=== PATIENT | male | born 1935 | race Caucasian/White ===

== ENCOUNTER 2019-09-19 21:37 | Emergency (ER) | payer MEDICARE, OTHER, SELFPAY ==
[2019-09-19 21:37] VITALS: BP 140/52; PULSE 75; RESP 18; TEMP 36.6; O2SAT 93; BMI 28.0
--- NOTE | 2019-09-19 22:32 | ED.DCSUM_ITS ---
History of Present Illness Chief Complaint: Confusion Informant: SNF Narrative: If reports that the patient has increased confusion. Patient unable to give a history due to his dementia. He has chronic baseline dementia and is bedbound. He has been in the [facility] for approximately 1 month as his could no longer care for him. He pulled his IV out tonight. He is supposed to get IV antibiotics for a pneumonia. He denies any complaints. He denies any shortness of breath or fevers or chills. Is not reported he has had any fevers or chills. Current severity is unknown. Past Medical History - Allergies and Home Meds Allergies/Adverse Reactions: Allergies albuterol [From Proventil HFA] Adverse Reaction (Verified 09/19/19 21:43) PT UNABLE TO RESPOND-NEEDS F/U clonidine Adverse Reaction (Verified 09/19/19 21:43) PT UNABLE TO RESPOND-NEEDS F/U oxycodone Adverse Reaction (Verified 09/19/19 21:43) PT UNABLE TO RESPOND-NEEDS F/U sulfamethoxazole [From Bactrim] Adverse Reaction (Verified 09/19/19 21:43) PT UNABLE TO RESPOND-NEEDS F/U trimethoprim [From Bactrim] Adverse Reaction (Verified 09/19/19 21:43) PT UNABLE TO RESPOND-NEEDS F/U Primary Care Physician: Juan Diego Vargas MD [Primary Care Provider] - Prior records reviewed: Yes Past Medical History: - - Dementia Surgical History: noncontributory [facility] Smoking Status: Unknown if ever smoked Alcohol: None Drugs: None Review of Systems ROS: Unable to Obtain - Secondary to dementia Physical Exam Vital Signs/Narrative: Vital Signs Temp Pulse Resp BP Pulse Ox 09/19/19 21:37 98 F 75 18 140/52 H 93 General: Well nourished, Well developed, No Acute Distress Head: Normocephalic, Atraumatic Eyes: Perrl, EOMI ENT: Moist mucous membranes, No rhinorrhea Neck: Supple, Nontender Cardiovascular: Regular rate, Regular rhythm, No murmurs Respiratory: No distress, CTA bilaterally, Chest nontender Abdomen: Soft, Nontender, Nondistended, Normal bowel sounds Back: Nontender, Normal Inspection Extremities: Nontender, No edema Skin: Normal color, No rash Neurological: Alert, Cranial nerves II-XII grossly intact, Normal Strength, Normal Sensation. Negative for: Oriented x3 Psychological: Normal affect, Normal Mood Diagnostic/Tx/Re-eval - Medical Decision Making Lab work CT brain and chest x-ray obtained. CT brain shows chronic atrophy with nothing acute. Chest x-ray shows mild interstitial pattern with no acute infiltrates or CHF. Lab work shows chronic renal insufficiency with elevated BUN and creatinine at 2.0. This is chronic for the patient comparing to previous lab work at the [facility]. Sodium is mildly elevated. This is unchanged from previous lab work done at the [facility] on yesterday. He did require 2 doses of Haldol to allow us to obtain a urine straight cath as well as lab work. Urinalysis shows no evidence of infection. There is no ketones in his urine to suggest dehydration. At this time I feel the patient likely just has dementia with confusion. He pulled out his PICC line and he was receiving IV antibiotics. It appears that they are going to switch him over to oral antibiotics to finish his course. Patient has a very mild leukocytosis likely secondary to his previous pneumonia. I do not feel he needs to be admitted. I feel he can follow-up as an outpatient at the [facility] ED Disposition - Plan for ED Patient: Disposition: Home or Assisted Living Diagnosis: Dementia with behavioral disturbance, Chronic renal insufficiency, Hypernatremia Instructions: ED CAREGIVER SUPPORT for DEMENTIA Referrals: Juan Diego Vargas MD [Primary Care Provider] -
[2019-09-19] MEDS: Haloperidol Lactate 5 MG/ML Vial 2 MG IM (23:21)
[2019-09-19 23:22] VITALS: O2SAT 87
--- NOTE | 2019-09-20 00:01 | RAD_ITS ---
STUDY: X-RAY CHEST REASON FOR EXAM: Male, 84 years old. CONFUSED AND COMBATIVE TECHNIQUE: Single AP portable view of the chest. COMPARISON: None. FINDINGS: Interstitial markings are mildly prominent especially in the left midlung zone. There is a subtle suggestion of calcification or linear calcification which could represent pleural plaquing. There is mild cardiac enlargement. Normal mediastinum and yue. Normal visualized pulmonary arteries. There is atherosclerotic calcification of the aortic arch with tortuosity. There are diffuse degenerative changes of the visualized thoracic spine. Normal visualized ribs, clavicles, and shoulders. There is no demonstrated abnormality of the visualized soft tissue structures of the upper abdomen. RAD/Chest 1 View (Portable) IMPRESSION: Nonspecific left greater than right interstitial markings. Possible minimal left side pleural plaquing. Consider underlying chronic interstitial lung disease or fibrosis. Cannot entirely exclude atypical infiltrates or mild edema. Electronically Signed: Amber Laws MD at 1:52 EDT Tel , Service support ,
--- NOTE | 2019-09-20 00:03 | ED.RN ---
attempted iv placement again, pt uncooperative. MD aware and medication order placed.
[2019-09-20] MEDS: Haloperidol Lactate 5 MG/ML Vial 2 MG IM (00:09)
[2019-09-20 01:00] VITALS: RESP 17
[2019-09-20 01:19] LABS: Bacteria 0 SEEN /hpf (None Seen); Mucous, Urine 0 SEEN /hpf (<or=2+); Red Blood Cells-Urine 0 SEEN /hpf (0-5); White Blood Cells 0 SEEN /hpf (0-5)
[2019-09-20 01:21] LABS: Color, Urine Yellow (Yellow); Glucose, Dipstick Normal (Normal); Ketone-Dipstick Negative (Negative); Leukocyte Esterase-Dipstick Negative /ul (Negative); Nitrite-Dipstick Negative (Negative); Occult Blood-Urine Negative /ul (Negative); Protein-Dipstick 15 mg/dl (Negative); Specific Gravity, Urine 1.025 (1.002-1.030); Urine Bilirubin Dipstick Negative (Negative); Urine Clarity Sl. Cloudy (Clear); Urine Urobilinogen Normal (Normal)
[2019-09-20 01:22] LABS: Absolute Lymphocyte Count 0.88 X10^3/uL (0.83-4.51); Absolute Neutrophil Count 8.4 X10^3/uL (2.0-7.7); Basophil# 0.04 X10^3/uL; Basophil% 0.4 % (0-1); Eosinophils% 3.5 % (0-5); Hematocrit 46.4 % (40-54); Lymphocyte # 0.88 X10^3/ul (4.0); Lymphocyte % 7.7 % (19-41); Mean Corp Hgb Conc 32.3 g/dL (32-36); Mean Corpuscular Hgb 32.1 pg (27.0-32.0); Mean Corpuscular Volume 99.1 fL (80-94); Mean Platelet Vol. 9.8 fl (6.2-12.0); Monocyte# 1.59 X10^3/uL; NRBC Flagged by Analyzer 0 % (0-5); POSITIVE DIFFERENTIAL YES; Platelet Count 211 K/mm3 (150-450); RBC Distribution Width CV 13.3 % (11.6-14.6); RBC Distribution Width SD 48.4 fl (35.1-43.9); Red Blood Count 4.68 M/mm3 (4.6-6.2); White Blood Count 11.4 K/mm3 (4.4-11.0)
[2019-09-20 01:25] LABS: Differential Indicated SCAN CRITERIA MET
[2019-09-20 01:38] LABS: Anion Gap 6 (5-15); BUN 48 mg/dL (7-18); BUN/Creat Ratio 23.4 RATIO (10-20); Calcium,Total 9.4 mg/dL (8.5-10.1); Chloride 113 mmol/L (98-107); Creatinine, Serum 2.05 mg/dL (0.70-1.30); EST Glomerular Filtration Rate 33 mL/min (>60); Est Glom Filt Rate - Afr Amer 40 mL/min (>60); Glucose 98 mg/dL (74-106); Potassium 4.4 mmol/L (3.5-5.1); Sodium Level 149 mmol/L (136-145)
[2019-09-20 01:42] LABS: Squamous Epithelial Cells - UA 0-5 SEEN /hpf (0-5)
[2019-09-20 01:45] LABS: Anisocytosis RARE; Macrocytosis RARE; Platelet Estimate ADEQUATE (ADEQ); Red Cell Morphology N CHROM NORMAL (NORM C&C)
[2019-09-20 02:20] VITALS: BP 147/89; PULSE 83; RESP 18; O2SAT 94
[2019-09-20 11:25] LABS: Pathologist Review Reviewed
--- NOTE | 2019-09-20 22:30 | CT_ITS ---
STUDY: CT BRAIN WITHOUT CONTRAST REASON FOR EXAM: Male, 84 years old. Confusion/combative, pt ON LEVAQUIN -- HX:DEMENTIA,HTN,PROSTATE Cancer, cad RADIATION DOSAGE (If Supplied By Facility): CTDIvol = ( 44.99 ) mGy, DLP = ( 796.11 ) mGycm TECHNIQUE: Transaxial CT imaging of the brain was performed without administration of intravenous contrast material. Individualized dose optimization techniques were used for this CT. COMPARISON: Due to technical issues the prior study is unavailable for comparison. FINDINGS: Normal soft tissue structures. Normal calvarium. There is moderate cerebral atrophy with widening of the extra-axial spaces and ventricular dilatation. There are areas of decreased attenuation within the white matter tracts of the supratentorial brain, consistent with microvascular disease changes. There is focal low attenuation within the left basal ganglia compatible with old lacunar infarct. Normal brainstem. There is moderate cerebellar atrophy. There is no intracranial hemorrhage. There are no findings of an acute ischemic infarction. Normal visualized paranasal sinuses. Is calcification of the cavernous carotid arteries. CT/Brain/Head without Contrast IMPRESSION: Atrophy. No evidence of acute hemorrhage infarct or edema. Electronically Signed: Amber Laws MD at 1:50 EDT Tel , Service support ,
== END 2019-09-20 02:25 | disposition home or self-care (01) ==
PROVIDERS: Emergency Provider Emergency Medicine; PCP Family Medicine
DX: F03.91 Unspecified dementia, unspecified severity, with behavioral disturbance (principal); F05 Delirium due to known physiological condition; I12.9 Hypertensive chronic kidney disease with stage 1 through stage 4 chronic kidney disease, or unspecified chronic kidney disease; N18.9 Chronic kidney disease, unspecified; I25.10 Atherosclerotic heart disease of native coronary artery without angina pectoris; E87.0 Hyperosmolality and hypernatremia; Z74.01 Bed confinement status; Z79.899 Other long term (current) drug therapy
CPT/HCPCS: 70450; 71045; 80048; 81001; 85025; 96372; 99285; P9612; A4216

== ENCOUNTER 2019-09-28 06:55 | Emergency (ER) | payer MEDICARE, OTHER, SELFPAY ==
[2019-09-28 06:58] VITALS: BP 106/55; PULSE 60; RESP 33; TEMP 36.6; O2SAT 99; BMI 28.0
--- NOTE | 2019-09-28 07:05 | CT_ITS ---
STUDY: CT BRAIN WITHOUT CONTRAST REASON FOR EXAM: Male, 84 years old. ALTERED MENTAL STATUS, LETHARGY, DECREASED LOC, DEMENTIA WITH BEHAVIORAL DISTURBANCE, HTN, PROSTATE CA, CAD-STENTS, STAGE 3 CKD RADIATION DOSAGE (If Supplied By Facility): CTDIvol = ( 44.99 ) mGy, DLP = ( 779.24 ) mGycm TECHNIQUE: Transaxial CT imaging of the brain was performed without administration of intravenous contrast material. Individualized dose optimization techniques were used for this CT. COMPARISON: Comparison is made with prior examination dated September 20, 2019. FINDINGS: Normal soft tissue structures. Normal calvarium. There is moderate cerebral atrophy with widening of the extra-axial spaces and ventricular dilatation. There are areas of decreased attenuation within the white matter tracts of the supratentorial brain, consistent with microvascular disease changes. Stable old left basal ganglion lacunar infarct. Normal brainstem. There is mild cerebellar atrophy. There is no intracranial hemorrhage. There are no findings of an acute ischemic infarction. Atherosclerotic calcification of the cavernous portions of the internal carotid arteries bilaterally. Normal visualized paranasal sinuses. CT/Brain/Head without Contrast IMPRESSION: Chronic involutional changes of the brain. There has been no change. Electronically Signed: Shayne Velarde, at 8:38 EDT , Service support ,
--- NOTE | 2019-09-28 07:05 | RAD_ITS ---
STUDY: X-RAY CHEST REASON FOR EXAM: Male, 84 years old. COUGH, ALT LOC, ETC. TECHNIQUE: Single AP portable view of the chest. COMPARISON: Comparison is made with prior examination dated September 20, 2019. FINDINGS: EKG electrodes are seen. Increased linear markings at the left lung base suggestive of linear atelectasis superimposed on chronic scarring. There is no demonstrated pleural abnormality. Normal size heart. Normal mediastinum and yue. Normal visualized pulmonary arteries. There is atherosclerotic calcification of the aortic arch with tortuosity. There are diffuse degenerative changes of the visualized thoracic spine. Normal visualized ribs, clavicles, and shoulders. There is no demonstrated abnormality of the visualized soft tissue structures of the upper abdomen. RAD/Chest 1 View (Portable) IMPRESSION: Findings suggestive of underlying atelectasis at the left lung base superimposed on linear scarring. Electronically Signed: Shayne Velarde, at 8:39 EDT , Service support ,
--- NOTE | 2019-09-28 07:05 | EKG12_ITS ---
Test Reason : ILLNESS Blood Pressure : / mmHG Vent. Rate : 055 BPM Atrial Rate : 055 BPM P-R Int : 218 ms QRS Dur : 142 ms QT Int : 466 ms P-R-T Axes : 060 -13 010 degrees QTc Int : 445 ms Sinus bradycardia with 1st degree A-V block Right bundle branch block Abnormal ECG Confirmed by CEASAR WASSERMAN, REGAN ([id number]), promotions coordinator MAK TURNER ([id number]) on 10/02/2019 2:20:24 PM Referred By: DELTA Confirmed By:REGAN MCDONOUGH MD
[2019-09-28 07:42] LABS: Absolute Lymphocyte Count 0.84 X10^3/uL (0.83-4.51); Absolute Neutrophil Count 17.9 X10^3/uL (2.0-7.7); Basophil# 0.05 X10^3/uL; Basophil% 0.2 % (0-1); Eosinophil# 0.05 X10^3/uL; Eosinophils% 0.2 % (0-5); Hematocrit 55.4 % (40-54); Hemoglobin 16.9 g/dL (13.0-16.5); Lymphocyte # 0.84 X10^3/ul (4.0); Lymphocyte % 4.1 % (19-41); Mean Corp Hgb Conc 30.5 g/dL (32-36); Mean Corpuscular Hgb 31.5 pg (27.0-32.0); Mean Corpuscular Volume 103.2 fL (80-94); Mean Platelet Vol. 10.7 fl (6.2-12.0); Monocyte# 1.35 X10^3/uL; Monocyte% 6.6 % (0-10); NRBC Flagged by Analyzer 0 % (0-5); Neutrophil # 17.92 X10^3/uL (2.7-7.7); Neutrophil % 88.3 % (47-70); Platelet Count 261 K/mm3 (150-450); RBC Distribution Width CV 14.1 % (11.6-14.6); RBC Distribution Width SD 54.1 fl (35.1-43.9); Red Blood Count 5.37 M/mm3 (4.6-6.2); White Blood Count 20.3 K/mm3 (4.4-11.0)
[2019-09-28 08:00] VITALS: BP 114/44; PULSE 56; RESP 25; O2SAT 97
[2019-09-28 08:08] LABS: Bacteria 0 SEEN /hpf (None Seen); Color, Urine Yellow (Yellow); Glucose, Dipstick Normal (Normal); Ketone-Dipstick Negative (Negative); Leukocyte Esterase-Dipstick Negative /ul (Negative); Mucous, Urine 0 SEEN /hpf (<or=2+); Nitrite-Dipstick Negative (Negative); Occult Blood-Urine 25 /ul (Negative); Protein-Dipstick 15 mg/dl (Negative); Red Blood Cells-Urine 0 SEEN /hpf (0-5); Squamous Epithelial Cells - UA 0 SEEN /hpf (0-5); Urine Bilirubin Dipstick Negative (Negative); Urine Clarity Clear (Clear); Urine Urobilinogen Normal (Normal); White Blood Cells 0 SEEN /hpf (0-5)
[2019-09-28 08:27] LABS: ALB/GLOB Ratio 0.9 RATIO (0.9-2.4); AST(SGOT) 209 U/L (15-37); Alanine Aminotransfer ALT/SGPT 65 U/L (16-61); Albumin, Serum 3.3 g/dL (3.2-5.0); Alkaline Phosphatase 111 U/L (45-117); Anion Gap 9 (5-15); BUN 110 mg/dL (7-18); BUN/Creat Ratio 18.9 RATIO (10-20); Calcium,Total 9.3 mg/dL (8.5-10.1); Chloride 123 mmol/L (98-107); Creatinine, Serum 5.82 mg/dL (0.70-1.30); EST Glomerular Filtration Rate 10 mL/min (>60); Est Glom Filt Rate - Afr Amer 12 mL/min (>60); Estimated Creatinine Clearance 9.28 ml/min; Globulin 3.8 g/dL (2.2-4.2); Glucose 134 mg/dL (74-106); Potassium 5.4 mmol/L (3.5-5.1); Protein, Total 7.1 g/dL (6.4-8.2); Sodium Level 161 mmol/L (136-145)
[2019-09-28 09:00] VITALS: BP 90/73; PULSE 56; RESP 19
--- NOTE | 2019-09-28 09:31 | ED.VIS.GEN ---
History of Present Illness Chief Complaint: Alt LOC Narrative: 84-year-old male with a history of Alzheimer's dementia presents from a longterm facility with altered mental status. He was apparently alert and awake last night when he went to bed but was unresponsive this morning and not following commands. Nonverbal. He was transported here by ambulance. History was unobtainable from him as he is nonverbal and unresponsive. Review of systems unable to be obtained so further history was obtained from the paramedics, the staff at the longterm facility, and his daughter Arlet. His unfortunately less than 1 month ago in hospice. He was living at home with her up until then. He suffered a fairly significant grief reaction for the week after her , continuously crying and not eating or drinking. His dementia seemed to become somewhat worse and he started hallucinating and was unable to live independently. He was subsequently admitted to a longterm facility where he has been dealing with delirium and receiving PRN Haldol. His daughter Arlet said that he has still been refusing to eat or drink and has gradually been going downhill since then. He has had dementia for several years but with the help of his was able to still remain fairly functional and independent prior to this. Capacity - Capacity Assessment Tool Can the patient make a choice & communicate that choice?: No Past Medical History - Allergies and Home Meds Allergies/Adverse Reactions: Allergies albuterol [From Proventil HFA] Adverse Reaction (Verified 09/28/19 07:10) PT UNABLE TO RESPOND-NEEDS F/U clonidine Adverse Reaction (Verified 09/28/19 07:10) PT UNABLE TO RESPOND-NEEDS F/U oxycodone Adverse Reaction (Verified 09/28/19 07:10) PT UNABLE TO RESPOND-NEEDS F/U sulfamethoxazole [From Bactrim] Adverse Reaction (Verified 09/28/19 07:10) PT UNABLE TO RESPOND-NEEDS F/U trimethoprim [From Bactrim] Adverse Reaction (Verified 09/28/19 07:10) PT UNABLE TO RESPOND-NEEDS F/U Primary Care Physician: Juan Diego Vargas MD [Primary Care Provider] - Surgical History: noncontributory Smoking Status: Unknown if ever smoked Review of Systems ROS: Unable to Obtain Physical Exam Vital Signs/Narrative: Vital Signs Temp Pulse Resp BP Pulse Ox 09/28/19 09:00 56 L 19 H 90/73 09/28/19 08:00 56 L 25 H 114/44 L 97 09/28/19 06:58 97.8 F 60 33 H 106/55 L 99 Inital Vital Signs reviewed: Yes General: Cachectic, Acute Distress Head: Normocephalic, Atraumatic Eyes: Pale conjunctiva ENT: Dry mucous membranes Neck: Supple Cardiovascular: Tachycardia Respiratory: Diminished Abdomen: Soft, Nontender Rectal: Guaiac positive Back: Nontender Extremities: Nontender, No edema Skin: Pallor Neurological: - - Clearly unresponsive. Not following commands. Nonverbal. Diagnostic/Tx/Re-eval Chest X-Ray - ED: 1 View, Read by Radiologist, Chronic Changes - Rhythm Strip Rhythm Strip: Sinus Rhythm Rate: 55 Ectopy: None - Medical Decision Making The patient is in severe distress on arrival. He is completely unresponsive. He is not following commands. Nonverbal. Appears in very significant distress and looks quite dehydrated. Potassium is elevated. Sodium is 161. White blood cell count is 20,300. He also appears hemoconcentrated. Urine does not look infected. Chest x-ray reveals chronic changes. CT brain is negative. He had a large amount of liquid stool in his diaper when the urine was obtained and was recently on antibiotics for pneumonia, raising a concern for C. difficile however his stool did not have the typical scent associated with C. difficile. Abdomen is soft and nontender. I had an extensive discussion with his daughter Arlet-initially speaking with her for almost 30 minutes and several further discussions after she spoke with other family members. We discussed his CODE STATUS. He was a full code on arrival. He has not been doing well since his less than a month ago and he has been refusing to eat or drink. I suspect his underlying dementia was made much worse by the of his and he now has depression and appears to be nearing the end of life. His daughter Arlet who is his financial power of trial attorney has been in contact with the other family members including her son, Micah who is the patient's medical power of trial attorney. They have already had a family meeting to discuss goals of care and they all in agreement that given his current state, DNR comfort care only would be the most appropriate CODE STATUS at this time and they would like to involve hospice. I spoke with the hospice nurse and also had a direct doctor to doctor communication with Dr. Tracey. They also communicated with the family and we are making arrangements to transport him to the hospice facility here locally. I spoke with Arlet again to update her. He was given IV fluids in the emergency department and I personally signed the DNR Comfort Care only form. - Critical Care Time Critical care time (excluding procedures): 30-74 minutes, Discussing w/Patient &/or Family/Credit Collector, Discussing w/Consultants, Arranging Admission or Transfer, Performing Direct Patient Care at Bedside ED Disposition - Plan for ED Patient: Disposition: Group Home Facility Diagnosis: End of life care, Acute renal failure, Hyperkalemia, Dehydration, Unresponsive Referrals: Juan Diego Vargas MD [Primary Care Provider] -
[2019-09-28 09:33] LABS: International Normalized Ratio 1.4; Prothrombin Time (Protime)PT. 16.2 SECONDS (11.7-14.9)
[2019-09-28 10:00] VITALS: BP 119/51; PULSE 54; RESP 18
--- NOTE | 2019-09-28 10:27 | ED.VISSUMM ---
- ER Visit Summary Date of Service: 09/28/19 Chief Complaint: [] History of Present Illness: The patient is a 84 M [] Physical Examination: [] Test Results: [] Emergency Department Course and Treatment: [] Treatment Plan: [] Disposition: [] Impression: [] This note was generated with [employer] software. It may contain incorrect words, spelling, and punctuation that were not noted in review of the chart prior to signing ED Disposition - Plan for ED Patient: Disposition: Care Home Facility Diagnosis: End of life care, Acute renal failure, Hyperkalemia, Dehydration, Unresponsive Instructions: ED DEMENTIA Alzheimer's, ED Insufficiency Renal Referrals: Juan Diego Vargas MD [Primary Care Provider] -
[2019-09-28 11:15] VITALS: BP 108/77; PULSE 54; RESP 14; O2SAT 96
== END 2019-09-28 11:17 | disposition skilled nursing facility (03) ==
PROVIDERS: Emergency Provider Emergency Medicine; PCP Family Medicine
DX: N17.9 Acute kidney failure, unspecified (principal); E87.5 Hyperkalemia; E86.0 Dehydration; R41.82 Altered mental status, unspecified; G30.9 Alzheimer's disease, unspecified; F02.80 Dementia in other diseases classified elsewhere, unspecified severity, without behavioral disturbance, psychotic disturbance, mood disturbance, and anxiety; Z66 Do not resuscitate
CPT/HCPCS: 70450; 71045; 80053; 81001; 82274; 84484; 85025; 85610; 87040; 87086; 93005; 96360; 99284; J7030